=== PATIENT | male | born 1995 | race Asian ===

== ENCOUNTER 2017-12-05 10:09 | Emergency (ER) | payer BC ==
[~2017-12-05] VITALS: Ht 172.7 cm; Wt 70.6 kg
[2017-12-05 10:11] VITALS: BP 125/77
== END 2017-12-05 10:54 | disposition home or self-care (01) ==
LOC: ED 10:48
DX: H65.03 Acute serous otitis media, bilateral (principal)
CPT/HCPCS: 99283